=== PATIENT | female | born 1985 | race African-American/Black ===

== ENCOUNTER 2019-06-25 19:28 | Emergency (ER) | payer OTHER ==
[~2019-06-25] VITALS: Ht 170.2 cm; Wt 59.0 kg
[2019-06-25 19:52] VITALS: BP 104/55
[2019-06-25] MEDS ORDERED: LIDOCAINE WITH 8.4% SOD BICARB 3 ML DISP.SYRIN. INJ ONE (20:15)
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
== END 2019-06-25 21:08 | disposition home or self-care (01) ==
LOC: ER 19:28 → EEVIPCON 19:28 → ER 21:08
DX: S01.511A Laceration without foreign body of lip, initial encounter (principal); Y04.8XXA Assault by other bodily force, initial encounter; Y93.89 Activity, other specified; Y92.89 Other specified places as the place of occurrence of the external cause; Y99.8 Other external cause status
CPT/HCPCS: 12011; 81025; 99283

== ENCOUNTER 2020-06-16 22:09 | Emergency (ER) | payer OTHER ==
[~2020-06-16] VITALS: Ht 170.2 cm; Wt 52.7 kg
[2020-06-16] MEDS ORDERED: MECLIZINE HCL 12.5 MG TABLET. PO ONE (22:30)
[2020-06-16] MEDS ORDERED: IV NORMAL SALINE 1000ML BAG 1,000 ML IV SCH (22:30)
--- NOTE | 2020-06-16 22:38 | PHYS DOC ---
Past Medical History Past Medical History: Anxiety, Bipolar, Depression, Hepatitis Additional Past Medical Histor: HEP B (CATHY ARIAS CONTRACT ADMINISTRATION MANAGER) Past Surgical History: No Surgical History (CATHY ARIAS CONTRACT ADMINISTRATION MANAGER) Smoking Status: Current Every Day Smoker Alcohol Use: Rarely Drug Use: None (CATHY ARIAS CONTRACT ADMINISTRATION MANAGER) General Adult EDM: Chief Complaint: DIZZY/LIGHT HEADED HPI: HPI: Patient is a 35 year old female who presents with tonight she took mirtazapine which she takes sporadically. She states she is was to take it and then go to sleep. She states that she took it but did not go to bed. She feels then she began becoming dizzy as like her blood pressure would drop. She stated that she called 911 when this happened. Patient has a history of smoker, anxiety, bipolar, depression, hepatitis B, marijuana use, hepatitis. Patient denies chest pain, shortness of breath, fevers, back pain, neck pain, dizziness at this time, vision changes, numbness or tingling, abdominal pain, nausea, vomiting, diarrhea, syncope, head injury. (CATHY ARIAS CONTRACT ADMINISTRATION MANAGER) Review of Systems: Review of Systems: Constitutional: Denies fever or chills. [] Eyes: Denies change in visual acuity. [] HENT: Denies nasal congestion or sore throat. [] Respiratory: Denies cough or shortness of breath. [] Cardiovascular: Denies chest pain or edema. [] GI: Denies abdominal pain, nausea, vomiting, bloody stools or diarrhea. [] : Denies dysuria. [] Musculoskeletal: Denies back pain or joint pain. [] Integument: Denies rash. [] Neurologic: Denies headache, focal weakness or sensory changes. Dizziness. [] Endocrine: Denies polyuria or polydipsia. [] Lymphatic: Denies swollen glands. [] Psychiatric: Denies depression or anxiety. [] (CATHY ARIAS CONTRACT ADMINISTRATION MANAGER) Heart Score: Risk Factors: Risk Factors: DM, Current or recent (<one month) smoker, HTN, HLP, family history of CAD, obesity. Risk Scores: Score 0 - 3: 2.5% MACE over next 6 weeks - Discharge Home Score 4 - 6: 20.3% MACE over next 6 weeks - Admit for Clinical Observation Score 7 - 10: 72.7% MACE over next 6 weeks - Early Invasive Strategies (CATHY ARIAS APRN) Current Medications: Current Medications Medications (Trade) Dose Ordered Sig/Annabel Start Time Stop Time Status Last Admin Dose Admin Meclizine HCl (Antivert) 25 mg 1X ONCE 06/16/20 22:30 06/16/20 22:31 DC Sodium Chloride 1,000 ml @ 1,000 mls/hr Q1H 06/16/20 22:30 06/16/20 23:29 (CAHTY ARIAS APRN) Allergies: Allergies: Allergies Coded Allergies Type Severity Reaction Last Updated Verified No Known Drug Allergies 06/25/19 No ([facility] Physical Exam: PE: Constitutional: Well developed, well nourished, no acute distress, non-toxic appearance. [] HENT: Normocephalic, atraumatic, bilateral external ears normal, oropharynx moist, no oral exudates, nose normal. [] Eyes: PERRLA, EOMI, conjunctiva normal, no discharge. [] Neck: Normal range of motion, no tenderness, supple, no stridor. [] Cardiovascular:Heart rate regular rhythm, no murmur [] Lungs & Thorax: Bilateral breath sounds clear to auscultation [] Abdomen: Bowel sounds normal, soft, no tenderness, no masses, no pulsatile masses. [] Skin: Warm, dry, no erythema, no rash. [] Back: No tenderness, no CVA tenderness. [] Extremities: No tenderness, no cyanosis, no clubbing, ROM intact, no edema. [] Neurologic: Alert and oriented X 3, normal motor function, normal sensory functi on, no focal deficits noted. [] Psychologic: Affect normal, judgement normal, mood normal. Normal physical exam. [] ([facility]) Current Patient Data: Vital Signs: Vital Signs Date Time Temp Pulse Resp B/P (MAP) Pulse Ox O2 Delivery O2 Flow Rate FiO2 06/16/20 22:10 98.5 79 26 104/47 (66) 99 Room Air 98.5 ([facility] CONTRACT [facility]MINISTRATION MANAGER) EKG: EK and read by Dr. Nowak as sinus rhythm and no STEMI [] (CATHY ARIAS APRN) Radiology/Procedures: Radiology/Procedures: [] Impression: [id number] [place] [address] IMAGING REPORT Signed PATIENT: ATIF MARINUNT: [id number] : 1985 LOCATION: ER AGE: 35 SEX: F EXAM STATUS: PRE ER ORD. PHYSICIAN: CATHY ARIAS APRN REASON: dizziness PROCEDURE: PORTABLE CHEST 1V Exam: Chest one view INDICATION: Dizziness TECHNIQUE: Frontal view of the chest Comparisons: None FINDINGS: The cardiomediastinal silhouette and pulmonary vessels are within normal limits. The lung and pleural spaces are clear. IMPRESSION: No acute cardiopulmonary process. Electronically signed by: Liban Rodríguez MD (06/16/2020 10:42 PM) [facility] DICTATED and SIGNED BY: LIBAN RODRÍGUEZ MD DATE: 06/16/202241 [id number] [place] [address] IMAGING REPORT Signed PATIENT: ALISON MARINACCOUNT: [id number] : 1985 LOCATION: ER AGE: 35 SEX: F EXAM STATUS: REG ER ORD. PHYSICIAN: CATHY ARIAS APRN REASON: headache, dizziness PROCEDURE: CT HEAD WO CONTRAST CT head without contrast: Reason for examination: Headache and dizziness. Axial images were obtained through the brain. No contrast was administered. Reconstruction was performed in coronal plane. Exposure: One or more of the following individualized dose reduction techniques were utilized for this examination: 1. Automated exposure control 2. Adjustment of the mA and/or kV according to patient size 3. Use of iterative reconstruction technique. Ventricular systems are symmetric and not abnormally dilated. No midline shift is seen. There is no evidence of intracranial hemorrhage, infarct, mass or edema. No abnormalities of seen at the orbits the paranasal sinuses visualized and mastoid air cells are clear. No acute abnormality seen in the skull. IMPRESSION: No acute intracranial abnormality evident. Electronically signed by: Grady Peres MD (06/16/2020 11:38 PM) [facility] DICTATED and SIGNED BY: GRADY PERES MD DATE: 06/16/202337 (CATHY ARIAS APRN) Course & Med Decision Making: Course & Med Decision Making Pertinent Labs and Imaging studies reviewed. (See chart for details) See HPI. Alert and oriented x4. Speaks in full complete sentences. No focal weaknesses. Lungs are clear to auscultation all lobes. PERRLA. No nystagmus. Patient has orthostatic hypotension. Orthostatics are as follows: Lying 97/53, 75; sitting 105/56, 82; standing 82/43 and heart rate of 70-with associated dizziness. I have ordered 2 L of normal saline, meclizine and Tylenol. Patient does state that she has a very mild headache and it is not the worst headache she is ever had. She states that her pain is on her forehead. She states is a aching pain. She rates it at a 5 out of 10. Patient states when she is just laying still in the bed she is not dizzy. When she closes her eyes she is not dizzy. NIH negative. [id number] test negative. Blood work is unremarkable. Chest x-ray shows no acute findings. CT head shows no acute findings. Patient is given 2 L of normal saline in the ED. Patient to have repeat orthostatics and to make sure she walks with a steady gait and dizziness is better. Second Orthostatics after 2L is Laying 87/53, 91; Sitting 108/55, 85; Standing 114/61, 83. Patient states she is feeling better. Patient did not feel dizzy. Patient is stable and to be discharged home. [] (CATHY ARIAS APRN) Course & Med Decision Making I have reviewed the PA/EMERGENCY VETERINARIAN's note and Plan of Care. I was available for consultation as needed during the patient's visit in the emergency department. I agree with the clinical impression, plans and disposition. (NATHANAEL NOWAK MD) Ashley Disclaimer: Dragnicole Disclaimer: This electronic medical record was generated, in whole or in part, using a voice recognition dictation system. (CATHY ARIAS APRN) Departure Departure Impression: Primary Impression: Orthostatic hypotension Disposition: 01 HOME, SELF-CARE Condition: STABLE Referrals: BOO RADFORD (PCP) Patient Instructions: Orthostatic Hypotension Additional Instructions: Continue drinking plenty of fluids. Follow-up with primary care physician as soon as possible. If symptoms worsen or you have syncopal episode return to the emergency room. CATHY ARIAS APRN Jun 16, 2020 22:38 NATHANAEL NOWAK MD Jun 17, 2020 04:40
--- NOTE | 2020-06-16 22:45 | RAD ---
Exam: Chest one view INDICATION: Dizziness TECHNIQUE: Frontal view of the chest Comparisons: None FINDINGS: The cardiomediastinal silhouette and pulmonary vessels are within normal limits. The lung and pleural spaces are clear. IMPRESSION: No acute cardiopulmonary process. Electronically signed by: Liban Anderson MD (06/16/2020 10:42 PM) TORRES
[2020-06-16] MEDS ORDERED: IV NORMAL SALINE 1000ML BAG 1,000 ML IV ONE (23:00)
[2020-06-16] MEDS ORDERED: ACETAMINOPHEN 500 MG TABLET PO ONE (23:15)
[2020-06-16 23:18] LABS: BASO % 1 % (0-3); EOS % 0 % (0-3); HEMATOCRIT 37.5 % (36.0-47.0); LYMPH # 1.6 x10^3/uL (1.0-4.8); LYMPH % 39 % (24-48); MEAN CORPUSCULAR HEMOGLOBIN 33 pg (25-35); MEAN CORPUSCULAR HGB CONC 35 g/dL (31-37); MEAN CORPUSCULAR VOLUME 96 fL (79-100); MONO # 0.4 x10^3/uL (0.0-1.1); MONO % 9 % (0-9); NEUT # 2.1 x10^3/uL (1.8-7.7); NEUT % 51 % (31-73); PLATELET COUNT 160 x10^3/uL (140-400); RED BLOOD COUNT 3.92 x10^6/uL (3.50-5.40); RED CELL DISTRIBUTION WIDTH 12.7 % (11.5-14.5); WHITE BLOOD COUNT 4.1 x10^3/uL (4.0-11.0)
[2020-06-16 23:32] LABS: PROTHROMBIN TIME PATIENT 13.8 SEC (11.7-14.0)
[2020-06-16 23:35] LABS: GFR 75.9; POTASSIUM 3.2 mmol/L (3.5-5.1)
[2020-06-16 23:40] LABS: ALBUMIN 2.9 g/dL (3.4-5.0); ALBUMIN/GLOBULIN RATIO 0.9 (1.0-1.7); TOTAL BILIRUBIN 0.1 mg/dL (0.2-1.0); TOTAL PROTEIN 6.2 g/dL (6.4-8.2)
--- NOTE | 2020-06-16 23:41 | RAD ---
CT head without contrast: Reason for examination: Headache and dizziness. Axial images were obtained through the brain. No contrast was administered. Reconstruction was performed in coronal plane. Exposure: One or more of the following individualized dose reduction techniques were utilized for this examination: 1. Automated exposure control 2. Adjustment of the mA and/or kV according to patient size 3. Use of iterative reconstruction technique. Ventricular systems are symmetric and not abnormally dilated. No midline shift is seen. There is no evidence of intracranial hemorrhage, infarct, mass or edema. No abnormalities of seen at the orbits the paranasal sinuses visualized and mastoid air cells are clear. No acute abnormality seen in the skull. IMPRESSION: No acute intracranial abnormality evident. Electronically signed by: Valeria Barnett MD (06/16/2020 11:38 PM) ALLEN
[2020-06-16 23:57] LABS: BILIRUBIN,URINE NEGATIVE (NEG); CLARITY,URINE CLEAR; COLOR,URINE YELLOW; NITRITE,URINE NEGATIVE (NEG); PH,URINE 5.5 (<5.0-8.0); PROTEIN,URINE NEGATIVE (NEG-TRACE); UROBILINOGEN,URINE 0.2 mg/dL (0.2 mg/dL)
[2020-06-17 00:04] LABS: BARBITURATES NEG (NEG); BENZODIAZEPINES POS (NEG); CANNABINOIDS POS (NEG); COCAINE NEG (NEG); METHADONE NEG (NEG); OPIATES NEG (NEG); PHENCYCLIDINE NEG (NEG)
[2020-06-17 00:06] LABS: BACTERIA,URINE MANY /HPF (0-FEW); RBC,URINE OCC /HPF (0-2)
[2020-06-17 00:07] LABS: HYALINE CASTS, URINE FEW /HPF
[2020-06-17 00:10] LABS: AMPHETAMINE/METHAMPHETAMINE NEG (NEG)
[2020-06-17] MEDS ORDERED: POTASSIUM CHLORIDE 20 MEQ TABLET.ER. PO ONE (00:30)
[2020-06-17] MEDS ORDERED: ONDANSETRON ODT 4 MG TAB.RAPDIS. PO ONE (00:30)
[2020-06-17 01:11] VITALS: BP 101/53
--- NOTE | 2020-06-17 10:15 | EKG ---
[facility] [address] [place] [address] Test Date: 2020-06-16 Test Time: 22:30:27 Pat Name: ALISON MARIN Department: Room: Gender: F Service Operator: : 1985 Requested By: CATHY ARIAS Order Number: [id number] Reading MD: Measurements Intervals [place] Rate: 74 P: 31 [place]: 156 QRS: 49 QRSD: 82 T: 43 QT: 378 QTc: 425 Interpretive Statements SINUS RHYTHM NORMAL ECG RI6.02 No previous ECG available for comparison
== END 2020-06-17 01:50 | disposition home or self-care (01) ==
LOC: ER 22:09
DX: I95.1 Orthostatic hypotension (principal); R42 Dizziness and giddiness; F31.9 Bipolar disorder, unspecified; F41.9 Anxiety disorder, unspecified; F17.200 Nicotine dependence, unspecified, uncomplicated
CPT/HCPCS: 36415; 70450; 71045; 80053; 80307; 81001; 83690; 84484; 85025; 85610; 87086; 93005; 96360; 96361; 99285; G0480; J7030; J8597

== ENCOUNTER 2022-01-30 22:55 | Emergency (ER) | payer OTHER ==
[~2022-01-30] VITALS: Ht 167.6 cm; Wt 55.4 kg
[2022-01-30 23:05] VITALS: BP 147/76
[2022-01-30] MEDS: KETOROLAC 15 MG/ML VIAL. IM ONE (23:49)
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
== END 2022-01-31 00:35 | disposition home or self-care (01) ==
LOC: ER 22:55
DX: S63.501A Unspecified sprain of right wrist, initial encounter (principal); F31.9 Bipolar disorder, unspecified; F17.200 Nicotine dependence, unspecified, uncomplicated; V49.49XA Driver injured in collision with other motor vehicles in traffic accident, initial encounter; Y93.89 Activity, other specified; Y92.488 Other paved roadways as the place of occurrence of the external cause; Y99.8 Other external cause status
CPT/HCPCS: 73100; 73130; 96372; 99284; J1885; 99283